=== PATIENT | female | born 1990 ===

== ENCOUNTER → 2019-03-09 | Outpatient (CLI) | payer OTHER | END | disposition home or self-care (01) | LOC: PRENATAL 12:44 | DX: O26.872 Cervical shortening, second trimester (principal) ==

== ENCOUNTER → 2019-04-01 | Outpatient (CLI) | payer OTHER | END | disposition home or self-care (01) | LOC: PRENATAL 08:30 | DX: O26.872 Cervical shortening, second trimester (principal) ==

== ENCOUNTER 2019-07-06 15:15 | Inpatient (IN) | payer OTHER ==
[~2019-07-06] VITALS: Ht 152.4 cm; Wt 72.6 kg
[2019-07-16] MEDS ORDERED: PRENATAL + DHA1 EAC1 PO (00:21)
[2019-07-16] MEDS ORDERED: MACROBID 100 M100 MG PO (00:21)
== END 2019-07-18 14:59 | DRG 768 ==
LOC: O/R 15:15 → OB/GYN 07-15 23:57 → LDR 07-15 23:57 → OB/GYN 07-16 20:22
PROVIDERS: ADMIT Obstetrics & Gynecology
PROC: 4A1HXCZ Monitoring of Products of Conception, Cardiac Rate, External Approach (ICD-10-PCS; 2019-07-15)
PROC: 0UQC0ZZ Repair Cervix, Open Approach (ICD-10-PCS; 2019-07-16)
PROC: 0KQM0ZZ Repair Perineum Muscle, Open Approach (ICD-10-PCS; 2019-07-16)
PROC: 0UQGXZZ Repair Vagina, External Approach (ICD-10-PCS; 2019-07-16)
PROC: BU4CZZZ Ultrasonography of Uterus and Ovaries (ICD-10-PCS; 2019-07-16)
PROC: 10E0XZZ Delivery of Products of Conception, External Approach (ICD-10-PCS; principal; 2019-07-16 17:00)
DX: O71.3 Obstetric laceration of cervix (principal); O72.1 Other immediate postpartum hemorrhage; O70.1 Second degree perineal laceration during delivery; Z37.0 Single live birth; Z3A.38 38 weeks gestation of pregnancy

== ENCOUNTER 2023-11-05 09:02 | Day surgery (SDC) | payer OTHER ==
[2023-11-05 08:16] LABS: HEMATOCRIT 37.8 % (36.0-45.00); HEMOGLOBIN 13.1 g/dL (12.0-15.00); MEAN CELL VOLUME 90.6 fL (80.00-100.00); MEAN CORPUSCULAR HEMOGLOBIN 31.3 pg (27.00-32.0); MEAN CORPUSCULAR HGB CONC 34.6 g/dl (32.0-36.0); PLATELET COUNT 155 K/uL (150-450); RED BLOOD COUNT 4.18 M/uL (4.00-6.00); RED CELL DISTRIBUTION WIDTH 12.9 % (11.5-14.5)
[2023-11-05 08:42] LABS: INR 0.94; PARTIAL THROMBOPLASTIN TIME 26.7 SECONDS (22.0-34.0); PROTHROMBIN TIME 9.9 SECONDS (9.0-11.5)
[2023-11-05 08:51] LABS: ALBUMIN 3.1 gm/dL (3.4-5.0); BILIRUBIN TOTAL 0.64 mg/dL (0.3-1.2); CALCIUM 8.8 mg/dL (8.5-10.1); CREATININE SERUM 0.51 mg/dL (0.55-1.02); GFR 138.88; GLOBULINA 3.7 G/DL (2.4-3.5); POTASSIUM 3.94 mEq/L (3.5-5.1); TOTAL PROTEIN 6.8 gm/dL (6.4-8.2)
[~2023-11-05 09:02] MED LIST: MACROBID 100 M100 MG PO; PRENATAL + DHA1 EAC1 PO
[2023-11-05] MEDS ORDERED: POVIDONE-IODINE 118 ML BOTT TOP ONE ×3 (13:19→14:30)
[2023-11-05] MEDS ORDERED: PROMETHAZINE HCL 50 MG/ML AMPUL IM ONE (14:45)
[2023-11-05] MEDS ORDERED: MORPHINE SULFATE 4 MG/ML VIAL IV PRN (14:45)
== END 2023-11-05 20:00 | disposition home or self-care (01) ==
LOC: CIR.AMB 09:02
PROVIDERS: ATTEND Obstetrics & Gynecology Maternal & Fetal Medicine
DX: O34.32 Maternal care for cervical incompetence, second trimester (principal); Z3A.22 22 weeks gestation of pregnancy